=== PATIENT | female | born 1945 | race Caucasian/White ===

== ENCOUNTER 2023-08-23 19:25 | Emergency (ER) | payer SELFPAY ==
[2023-08-23 19:27] VITALS: BP 144/32
[2023-08-23 21:00] VITALS: BP 139/76
--- NOTE | 2023-08-23 21:02 | ED.GENMED ---
History of Present Illness
General
Chief Complaint: Head Injury
Source: patient
Exam Limitations: none
Time Seen by Provider: 08/23/23 20:53
Travel History
Have you had any contact with someone who has COVID-19?: No
Do you have any symptoms of coronavirus? Fever > 100 degrees, chills, cough, shortness of breath, sore throat, loss of taste or smell, muscle aches, or headache?: No
History of Present Illness
History of Present Illness:
Patient fell backwards into a tub. Hit the back of her head. Complaining of some head pain neck pain left foot pain and elbow pain. Foot and elbow x-rays were negative. No LOC. No syncope. No thinners.
Past History
Past History
ED Past Medical History: HTN
Social History
Tobacco: Non-smoker
Personal:
Review of Systems
Review of Systems
All Other Systems: Not applicable
Cardiac: Denies chest pain or syncope
ABD/GI: Denies abdominal pain
Phy Exam
Physical Exam
Physical Exam:
TRAUMA EXAM:
VITAL SIGNS: Vital signs reviewed, cooperative
DISTRESS: No active disease
EYES: Pupils reactive, no orbital trauma
NOSE: No deformity or epistaxis
FACE AND SCALP: No scalp or facial trauma
NECK: Supple mild paracervical tenderness
BACK: Back nontender, pelvis stable to compression
RESPIRATORY: No distress, breath sounds normal, no tender chest wall
CARDIAC: No murmur, pulses equal and strong
ABDOMEN: Soft nontender bowel sounds normal
SKIN: Abrasion to the dorsal left foot with small area of ecchymosis
EXTREMITIES: Very minimal tenderness over the area of ecchymosis but no deep bony tenderness
NEUROLOGICAL: Alert, oriented, no motor deficits
PSYCH: Mood affect normal
Course
Orders/Labs/Results
Orders:
Orders
08/23/23 19:32
CT Head W/o Iv Contrast Urgent
Comment:
Reason For Exam: FALL INTO BATHTUB
Cervical Spine wo Contrast CT [CT Cervical Spine W/o Iv Contr] Urgent
Comment:
Reason For Exam: FALL INTO BATHTUB
Vital Signs
Initial and Last Documented VS:
Initial Vital Signs
Temp Pulse Resp BP Pulse Ox
98.3 F 64 24 144/32 98
08/23/23 19:27 08/23/23 19:27 08/23/23 19:27 08/23/23 19:27 08/23/23 19:27
Last Documented Vital Signs
Temp Pulse Resp BP Pulse Ox
98.3 F 64 24 144/32 98
08/23/23 19:27 08/23/23 19:27 08/23/23 19:27 08/23/23 19:27 08/23/23 19:27
*Radiology
Radiology exam reviewed: radiology read reviewed (Degenerative changes. No acute findings)
*Pulse Oximetry
Patient hypoxic: no
*Critical Care Note
Total Time (30-74mins, 75-104mins- exclusive of procedures): Not Applicable
ED Attending Note
-
Portions of this chart may have been created with voice recognition software.� Occasional wrong word or��sound alike� substitutions may have occurred due to the inherent limitations of voice recognition software.
Discharge Plan
Departure
Patient Disposition: Home (Routine Discharge)
Date of Disposition: 08/23/23
Time of Disposition: 21:07
Patient with high blood pressure during this ER visit?: No
Discharge Problem:
Fall, Minor head injury, Multiple contusions/abrasions
Instructions: Contusion (DC), Minor Head Injury (DC), BLOOD PRESSURE
Activity Restrictions/Additional Instructions:
Follow-up with your physician in 2 to 3 days
Interventions
Interventions:
*Risk Screen - Suicide Last Done: 08/23/23 19:27
*Neglect/Abuse Screening Last Done: 08/23/23 19:27
Discharge Date and Time
Print Language: ICELANDIC
== END 2023-08-23 22:08 | disposition home or self-care (01) ==
LOC: EMR 19:25
PROVIDERS: EMERGENCY PHYSICIAN Emergency Medicine
DX: S09.90XA Unspecified injury of head, initial encounter (principal); S90.32XA Contusion of left foot, initial encounter; S90.812A Abrasion, left foot, initial encounter; W18.2XXA Fall in (into) shower or empty bathtub, initial encounter; Y93.E1 Activity, personal bathing and showering; I10 Essential (primary) hypertension
CPT/HCPCS: 99284; 70450; 72125

== ENCOUNTER 2024-05-28 02:55 | Inpatient (IN) | payer OTHER, SELFPAY ==
[2024-05-27] VITALS (7 sets, daily range): BP systolic 73–148; BP diastolic 56–110; BMI 22.1
[2024-05-27 20:27] LABS: % Basophils 0.1 % (0-2); % Eosinophils 0.6 % (0-6); % Immature Granulocytes 0.5 % (0-0.5); % Lymphocytes 8.2 % (20.5-51.1); % Monocytes 7.8 % (1.7-9.3); % Neutrophils 82.8 % (42.2-75.2); Absolute Eosinophils 0.1 10^3/uL (0-0.7); Absolute Lymphocytes 0.7 10^3/uL (1.2-3.4); Absolute Monocytes 0.7 10^3/uL (0.1-0.6); Absolute Neutrophils 7.3 10^3/uL (1.4-6.5); Hematocrit 37.8 % (37.0-47.0); Hemoglobin 13.1 g/dL (12.0-16.0); Mean Corp Hgb Conc. 34.7 g/dL (33.0-37.0); Mean Corpuscular Volume 92.2 fL (81.0-99.0); Mean Platelet Volume 10.7 fL (7.4-10.4); Nucleated Red Blood Cells % 0 %; Platelet Count 132 10^3/uL (130-400); Red Cell Dist. Width 12.3 % (11.5-14.5); White Blood Cell Count 8.8 10^3/uL (4.8-10.8)
--- NOTE | 2024-05-27 20:34 | ED.GENMED ---
History of Present Illness
General
Chief Complaint: Weakness
Source: patient
Exam Limitations: none
Time Seen by Provider: 05/27/24 20:05
History of Present Illness
History of Present Illness:
78 year old female presents via EMS from independent apartment with complaints of generalized weakness. She states she had some type of nightmare last night and was out of sorts and today she is feeling very weak. She was afraid to walk around her
apartment today as she felt like her legs would give out. She denies any unilateral numbness or weakness. No chest pain or shortness of breath. She notes a vague off sensation that she does not know how to describe. No significant pain anywhere.
No other complaints at this time
Past History
Past History
ED Past Medical History: HTN
Social History
Tobacco: Non-smoker
Personal:
Phy Exam
Physical Exam
Physical Exam:
General: Well-appearing female no acute respiratory distress
HEENT: Normocephalic atraumatic mucosa slightly dry
Heart: Regular rate and rhythm no murmurs
Lungs: Clear no wheeze
Abdomen is soft nontender nondistended no guarding rebound normal bowel sounds
Extremities: No cyanosis
Skin warm no rash
Course
Orders/Labs/Results
Orders:
Orders
05/27/24 20:17
CMP [Comprehensive Metabolic Panel] Urgent
Complete Blood Count/With Diff Urgent
TSH Reflex To Free T4 Urgent
Comment: ADD ON
05/27/24 20:18
EKG [Electrocardiogram (*1)] Urgent
Reason for Study: Fatigue / Weakness
05/27/24 20:19
EKG- Treatment ONCE
05/27/24 20:25
CR Chest - 2 Views Urgent
Comment:
Reason For Exam: weakness
05/27/24 20:26
CT Head W/o Iv Contrast Urgent
Comment:
Reason For Exam: weakness, confusion
05/27/24 20:33
COVID-19 Antigen Urgent
Source: Nasal Swab
Influenza A+B Rapid Molecular Urgent
DONATO Source: Nasal Swab
Specimen Description:
05/27/24 21:11
Add On- LAB Urgent
Tests Added?: tsh reflex to t4
05/27/24 21:20
Urinalysis Reflex To Culture Urgent
Date Specimen was Collected: 05/27/24
Time Specimen was Collected: 20:36
Urine Microscopic Reflex Cult Urgent
Urine Culture Urgent
DONATO Source: U
Specimen Description:
Date Specimen was Collected: 05/27/24
Time Specimen was Collected: 20:36
05/27/24 21:58
CefTRIAXone [Rocephin] 1,000 mg IV NOW STA
05/27/24 22:28
0.9% Sodium Chloride 1000 ml [Nss] 1,000 ml IV BOLUS
05/28/24 00:27
Ondansetron Orally Disint [Zofran Odt (Orally Disintegrating)] 4 mg PO NOW STA
Abnormal Lab Results
05/27/24 05/27/24
20:17 21:20
RBC 4.10 L 10^6/uL
(4.20-5.40)
MCH 32.0 H pg
(27.0-31.0)
MPV 10.7 H fL
(7.4-10.4)
Absolute Neuts (auto) 7.3 H 10^3/uL
(1.4-6.5)
Absolute Lymphs (auto) 0.7 L 10^3/uL
(1.2-3.4)
Absolute Monos (auto) 0.7 H 10^3/uL
(0.1-0.6)
Neutrophils % 82.8 H %
(42.2-75.2)
Lymphocytes % 8.2 L %
(20.5-51.1)
Sodium 132 L mmol/L
(135-145)
Glucose 233 H mg/dl
(70-99)
Total Protein 6.0 L g/dl
(6.3-8.2)
Ur Occult Blood Reflex 3+ A
(Negative)
Urine Nitrite (Reflex) Positive A
(Negative)
Leukocyte Esterase Rfl 3+ A
(Negative)
Urine WBC (Reflex) >100 A /HPF
(0-5)
Urine Bacteria (Reflex) Moderate A
(Negative)
Urine Albumin (Reflex) 2+ A
(Neg - Trace)
05/27/24 20:17
05/27/24 20:17
Vital Signs
Initial and Last Documented VS:
Initial Vital Signs
Temp Pulse Resp BP Pulse Ox
98.6 F 89 14 138/62 95
05/27/24 20:05 05/27/24 20:05 05/27/24 20:05 05/27/24 20:05 05/27/24 20:05
Last Documented Vital Signs
Temp Pulse Resp BP Pulse Ox
98.6 F 107 22 148/108 93
05/27/24 20:05 05/28/24 00:00 05/28/24 00:00 05/28/24 00:00 05/27/24 22:45
MDM/Problems Addressed
Differential Diagnosis Includes:
Generalized weakness. No localizing findings on exam. Differential is large but will check for electrolyte abnormality anemia UTI viral infection. Does look slightly dry. Will hydrate.
*Critical Care Note
Total Time (30-74mins, 75-104mins- exclusive of procedures): Not Applicable
Update Note
Update Note:
Workup consistent with UTI labs reviewed and are normal. Please note there were several blood pressure checks on the left arm however she is not supposed to have the blood pressure checked on her left arm as it gives falsely low readings. When
switched to the right arm her blood pressure normalized. No indication for admission. Will treat with Omnicef for UTI. Stable for discharge
12:50 AM. Upon discharge patient started vomiting. She started developing rigors. Ultimately recheck of temperature showed a temperature of 102.0. She was given ODT Zofran but vomited shortly afterwards. At this point not a candidate for
discharge. Will restart IV administer fluids and admit for UTI and fever. Blood cultures also ordered
ED Attending Note
-
Portions of this chart may have been created with voice recognition software.� Occasional wrong word or��sound alike� substitutions may have occurred due to the inherent limitations of voice recognition software.
Discharge Plan
Departure
Patient Disposition: Admit
Date of Disposition: 05/28/24
Time of Disposition: 00:06
Presentation/result/management discussed w/ accepting MD/DO: Hospitalist
Patient with high blood pressure during this ER visit?: No
Discharge Problem:
Acute UTI
Prescriptions:
New
cefdinir 300 mg capsule
300 mg PO BID Qty: 14 0RF
No Action
atorvastatin 40 mg Tablet
40 mg PO DAILY
ascorbic acid (vitamin C) [Vitamin C] 1,000 mg Tablet
1 g PO DAILY
cyanocobalamin (vitamin B-12) 1,000 mcg Tablet
1,000 mcg PO DAILY
glucosamine sulfate [Glucosamine] 500 mg Tablet
500 mg PO DAILY
potassium 99 mg Tablet
99 mg PO DAILY
citalopram 20 mg Tablet
20 mg PO DAILY
levothyroxine 50 mcg Tablet
50 mcg PO MOTUWETHFRSA
levothyroxine 50 mcg Tablet
100 mcg PO ROMAN
metformin 1,000 mg Tablet
1,000 mg PO DAILY
omeprazole 20 mg Capsule,Delayed Release(Dr/Ec)
20 mg PO DAILY
aspirin 81 mg Tablet,Chewable
81 mg PO DAILY
metoprolol succinate 25 mg Tablet Extended Release 24 Hr
25 mg PO DAILY
candesartan 8 mg Tablet
8 mg PO DAILY
ezetimibe 10 mg Tablet
10 mg PO DAILY
memantine 10 mg Tablet
10 mg PO DAILY
cholecalciferol (vitamin D3) [Vitamin D3] 25 mcg (1,000 unit) Tablet
25 mcg PO DAILY
hydrochlorothiazide 12.5 mg Tablet
12.5 mg PO DAILY
magnesium oxide 400 mg magnesium Tablet
400 mg PO DAILY
Referrals:
JOCY MILLER [Other]
Interventions
Interventions:
*Risk Screen - Suicide Last Done: 05/27/24 20:12
*General Assessment Last Done: 05/27/24 20:12
*Neglect/Abuse Screening Last Done: 05/27/24 20:12
*ED- Fall Risk Assessment Last Done: 05/27/24 20:12
*ED COVID-19 Vaccine History Last Done: 05/27/24 20:12
ED- Cardiac Assessment Last Done: 05/27/24 20:15
ED- Neurological Assessment Last Done: 05/27/24 20:15
ED- Pulmonary Assessment Last Done: 05/27/24 20:15
Discharge Date and Time
Print Language: CITIZEN OF [place]
[2024-05-27 20:43] LABS: ALT (SGPT) 14 U/L (0-35); AST (SGOT) 17 U/L (14-36); Albumin 3.6 g/dl (3.5-5.0); Alkaline Phosphatase 95 U/L (38-126); Blood Urea Nitrogen 17 mg/dl (7-17); Calcium 8.7 mg/dl (8.4-10.2); Carbon Dioxide 24 mmol/L (22-30); Chloride 100 mmol/L (98-107); Estimated Creatinine Clearance 46 ml/min; Glucose 233 mg/dl (70-99); Potassium 3.8 mmol/L (3.5-5.1); Sodium 132 mmol/L (135-145); Total Bilirubin 0.9 mg/dl (0.2-1.3); eGFR > 60.00
[2024-05-27 20:56] LABS: COVID-19 Antigen Negative (Negative)
[2024-05-27 21:29] LABS: Urine Albumin 2+ (Neg - Trace); Urine Bilirubin Negative (Negative); Urine Character Clear (Clear); Urine Color Yellow; Urine Glucose Negative (Negative); Urine Ketone Negative (Negative); Urine Leukocyte 3+ (Negative); Urine Nitrite Positive (Negative); Urine Occult Blood 3+ (Negative); Urine Specific Gravity 1.015 (<1.030); Urine Urobilinogen Negative (Neg - 1+)
[2024-05-27 21:41] LABS: Urine White Cell >100 /HPF (0-5)
[2024-05-27 21:43] LABS: Urine Bacteria Moderate (Negative)
[2024-05-27] MEDS: ROCEPHIN 1000 MG IV (22:10)
[2024-05-27 22:32] LABS: TSH Reflex To Free T4 0.93 uIU/ml (0.47-4.68)
[2024-05-27] MEDS: NSS 1000 IV (23:04)
[2024-05-28] VITALS (10 sets, daily range): BP systolic 101–148; BP diastolic 53–108; PULSE 62–86; O2SAT 95; BMI 22.2
[2024-05-28] MEDS: ZOFRAN ODT (ORALLY DISINTEGRATING) 4 MG PO (00:32)
[2024-05-28] MEDS: NSS 1000 IV ×3 (01:32→16:29)
[2024-05-28] MEDS: ZOFRAN 4 MG IV (01:34)
[2024-05-28] MEDS: TYLENOL 650 MG PO (01:38)
--- NOTE | 2024-05-28 02:42 | HPS.HSE ---
Family Physician
-
Family Physician: JOCY MILLER
Chief Complaint
-
Confusion, Myalgias
History of Present Illness
Patient is an 78y F with PMH significant for PAD, hypertension and DM-II who presents to ED complaining of generalized weakness and fatigue. Patient seems confused according to her daughter who is at bedside. Patient states that she has felt
'out of sorts' all day today. Evaluation in the ED revealed UA consistent with infection and patient was given IV ceftriaxone and set to be discharged on oral abx. She then developed shaking chills and had N/V x 1 episode. Temperature increased
to 102. Patient complains of diffuse myalgias. She denies any specific/ focal complaints such as cough, abdominal pain, urinary frequency / dysuria, etc.
Medical History
Past Medical History
Past Medical History: Reports Other
Additional Past Medical History:
Senile Dementia
ASCVD / PAD
Hypertension
DM-II
Hypothyroidism
Anxiety / Depression
Past Surgical History: Reports Other
Additional Past Surgical History:
LE Angio / Stent
Social History
Tobacco: Former Smoker (Quit smoking 40 years ago. < 20 pack years total use.)
Alcohol: None
Drug: None
Family History
Family History: Not pertinent
Allergies / Home Medications
Allergies reflects when Allergies were last updated in [facility].
Home Medications with original date entered in [facility]
Allergy/Medication List:
Allergies
Allergy/AdvReac Type Severity Reaction Status Date / Time
quinine Allergy Rash Verified 05/27/24 20:10
Home Medications
ascorbic acid (vitamin C) 1,000 mg tablet (Vitamin C) 1 g PO DAILY 05/27/24
aspirin 81 mg chewable tablet 81 mg PO DAILY 05/27/24
atorvastatin 40 mg tablet 40 mg PO DAILY 05/27/24
candesartan 8 mg tablet 8 mg PO DAILY 05/27/24
cholecalciferol (vitamin D3) 25 mcg (1,000 unit) tablet (Vitamin D3) 25 mcg PO DAILY 05/27/24
citalopram 20 mg tablet 20 mg PO DAILY 05/27/24
cyanocobalamin (vitamin B-12) 1,000 mcg tablet 1,000 mcg PO DAILY 05/27/24
ezetimibe 10 mg tablet 10 mg PO DAILY 05/27/24
glucosamine sulfate 500 mg tablet (Glucosamine) 500 mg PO DAILY 05/27/24
hydrochlorothiazide 12.5 mg tablet 12.5 mg PO DAILY 05/27/24
levothyroxine 50 mcg tablet 50 mcg PO MOTUWETHFRSA 05/27/24
levothyroxine 50 mcg tablet 100 mcg PO ROMAN 05/27/24
magnesium oxide 400 mg PO DAILY 05/27/24
memantine 10 mg tablet 10 mg PO DAILY 05/27/24
metformin 1,000 mg tablet 1,000 mg PO DAILY 05/27/24
metoprolol succinate 25 mg tablet,extended release 24 hr 25 mg PO DAILY 05/27/24
omeprazole 20 mg capsule,delayed release 20 mg PO DAILY 05/27/24
potassium 99 mg tablet 99 mg PO DAILY 05/27/24
cefdinir 300 mg capsule 300 mg PO BID #14 caps 05/28/24
Review of Systems
-
History Source: Patient
A 12 point ROS was completed and negative except as noted: Yes
Constitutional: Reports Fever, Fatigue and Chills
EENT: Denies Sore Throat
Respiratory: Denies Cough or Trouble Breathing
Cardiac: Denies Chest Pain or Palpitations
Abdomen/GI: Reports Nausea and Vomiting; Denies Abdominal Pain or Diarrhea
: Denies Dysuria, Frequency or Flank Pain
Musculoskeletal: Reports Muscle Pain; Denies Joint Pain or Edema
Neurological: Denies Dizzy or Headache
Psych: Denies Depression or Anxiety
Physical Exam
Vital Signs
Vital Signs
Temp Pulse Resp BP Pulse Ox
102.0 F H 100 24 121/85 89
05/28/24 01:00 05/28/24 00:17 05/28/24 00:17 05/28/24 02:00 05/28/24 02:00
Physical Exam
General: Other (78y F in no acute distress.)
HEENT: Other (Dry MM. Neck supple.)
Respiratory: Clear; No Wheezes, Rales or Rhonchi
Cardiac: S1/S2 and Regular Rhythm
GI: Soft, Non Tender, Non Distended and Normal Bowel Sounds
Musculoskeletal: No Clubbing, No Cyanosis and No Edema
Neuro: Awake and Alert
Laboratory Results
-
05/27/24 20:17
05/27/24 20:17
Laboratory Results
Total Bilirubin 0.9 mg/dl (0.2-1.3) 05/27/24 20:17
AST 17 U/L (14-36) 05/27/24 20:17
ALT 14 U/L (0-35) 05/27/24 20:17
Alkaline Phosphatase 95 U/L (38-126) 05/27/24 20:17
Impression/Plan
-
A/P: Patient is an 78y F with PMH significant for HTN, DM-II and dementia who presents to ED complaining of fatigue. Noted to have rigors, N/V and fever to 102 here in the ED.
UTI
Sepsis secondary to the above
- Admit for further evaluation and treatment.
- Patient presents with fever, tachycardia, tachypnea and UA consistent with UTI.
- Continue IV ceftriaxone pending culture data.
- Supportive care including IVFs, antipyretics, etc.
- Follow for clinical improvement.
- Check renal US for any evidence of hydro, etc.
Benign Hypertension
- Stable. Continue home medications with holding parameters.
ASCVD / PAD
- Stable. Continue current CV med regimen including ASA, statin, etc.
DM-II
- Stable. Hold metformin acutely.
- Follow glucose and cover with SSI as needed.
- Update A1C.
Hypothyroidism
- Stable. TSH is normal.
- Continue current T4 replacement.
Senile Dementia
Anxiety / Depression
- Stable. Continue usual home medications.
- Pleasantly confused in the ED.
- Monitor for any agitation / delirium during acute stay.
DVT Prophylaxis: Lovenox
Code Status: Full
[2024-05-28 05:40] LABS: Hemoglobin 12.5 g/dL (12.0-16.0); Mean Corp Hgb Conc. 33.8 g/dL (33.0-37.0); Mean Corpuscular Hgb 31.9 pg (27.0-31.0); Mean Corpuscular Volume 94.4 fL (81.0-99.0); Mean Platelet Volume 10.6 fL (7.4-10.4); Platelet Count 127 10^3/uL (130-400); Red Blood Cell Count 3.92 10^6/uL (4.20-5.40); Red Cell Dist. Width 12.2 % (11.5-14.5); White Blood Cell Count 10.5 10^3/uL (4.8-10.8)
[2024-05-28] MEDS: SYNTHROID 50 MCG PO (05:43)
[2024-05-28 05:50] LABS: Blood Urea Nitrogen 18 mg/dl (7-17); Calcium 8.1 mg/dl (8.4-10.2); Carbon Dioxide 18 mmol/L (22-30); Chloride 106 mmol/L (98-107); Estimated Creatinine Clearance 40 ml/min; Glucose 197 mg/dl (70-99); Potassium 4.1 mmol/L (3.5-5.1); Sodium 136 mmol/L (135-145); eGFR > 60.00
[2024-05-28 07:34] LABS: Glucose - Point of Care 174 mg/dl (70-99)
[2024-05-28] MEDS: LIPITOR 40 MG PO (09:29)
[2024-05-28] MEDS: ATACAND 8 MG PO (09:30)
[2024-05-28] MEDS: TOPROL XL 25 MG PO (09:30)
[2024-05-28] MEDS: CELEXA 20 MG PO (09:30)
[2024-05-28] MEDS: LOW STRENGTH ASPIRIN 81 MG PO (09:30)
[2024-05-28] MEDS: PROTONIX 40 MG PO (09:30)
[2024-05-28] MEDS: NAMENDA 10 MG PO (09:31)
[2024-05-28 09:56] LABS: Glycohemoglobin (HgbA1c) 7.3 % (4.0-5.6)
[2024-05-28] MEDS: NOVOLOG FLEXPEN-LOW RESISTANCE 1 UNITS SC ×2 (10:37→17:35)
[2024-05-28 11:55] LABS: Glucose - Point of Care 499 mg/dl (70-99)
[2024-05-28 12:22] LABS: Glucose 253 mg/dl (70-99)
--- NOTE | 2024-05-28 12:25 | CM ---
CM reviewed chart, patient seen bedside with two daughters (Sho and Irma) and granddaughter. Initial assessment completed with assistance from daughters. Patient resides independently in an apartment, second floor, elevator access. Patient
has a cane and walker at home, denies VN or SNF history. Patient primary- [facility], pharmacy [facility] [place] confirms prescription coverage. PT consulted, family agreeable to VN services or SNF if needed. Daughter Sho would like to be
contacted for VN services if needed. CM will continue to follow for all discharge planning needs.
Plan; home with VN vs SNF, will watch for PT evals.
[2024-05-28] MEDS: NOVOLOG FLEXPEN-LOW RESISTANCE 3 UNITS SC (13:10)
--- NOTE | 2024-05-28 14:31 | W.PN.HOSP.TC ---
Today's Communication/Plan
-
follow temp, CBC
await Cx data
Pt states lives on own in apartment
Input from PT/OT noted and appreciated
Assessment / Plan
Assessment / Plan
A/P: Patient is an 78y F with PMH significant for HTN, DM-II and dementia who presents to ED complaining of fatigue. Noted to have rigors, N/V and fever to 102 here in the ED.
UTI
Sepsis secondary to the above
- Admit for further evaluation and treatment.
- Patient presents with fever, tachycardia, tachypnea and UA consistent with UTI.
WBC 8.8-->10.5
- Continue IV ceftriaxone pending culture data.
- Supportive care including IVFs, antipyretics, etc.
- Follow for clinical improvement.
- Check renal US: There is no hydronephrosis or sonographic evidence of renal calculus.
Benign Hypertension
- Stable. Continue home medications with holding parameters.
ASCVD / PAD
- Stable. Continue current CV med regimen including ASA, statin, etc.
DM-II
- Stable. Hold metformin acutely.
- Follow glucose and cover with SSI as needed.
- 7.3% A1C.
Hypothyroidism
- Stable. TSH is normal.
- Continue current T4 replacement.
Senile Dementia
Anxiety / Depression
- Stable. Continue usual home medications.
- Pleasantly confused in the ED.
- Monitor for any agitation / delirium during acute stay.
DVT Prophylaxis: Lovenox
Code Status: Full
Anticipated Discharge: 24 - 48 hours
Subjective/Interval History
-
Date of Service: May 28, 2024
Awake, alert, asking when she can leave
Objective Data
-
Labs:
Laboratory Results
05/28/24 05/28/24
05:15 12:03
WBC 10.5
Hgb 12.5
Hct 37.0
Plt Count 127 L
Sodium 136
Potassium 4.1
Chloride 106
Carbon Dioxide 18 L
BUN 18 H
Creatinine 0.8
Glucose 197 H 253 H
Calcium 8.1 L
Vital Signs:
Vital Signs
Temp Pulse Resp BP Pulse Ox
97.7 F 77 18 117/76 98
05/28/24 07:25 05/28/24 09:30 05/28/24 07:25 05/28/24 09:30 05/28/24 07:25
Review of Systems
-
History Source: Patient and Coordinated Provider
Constitutional: Reports Fever (102.0 at 01:00)
Respiratory: Reports No Symptoms
Cardiac: Reports No Symptoms
Abdomen/GI: Reports No Symptoms
Genitourinary: Reports No Symptoms
Neuro: Reports No Symptoms
Physical Exam
-
General: Well Developed, Well Nourished and Appears Chronically Ill
HEENT: Normocephalic, Atraumatic and Moist Mucous Membranes
Respiratory: Clear to Auscultation; Negative Wheezes, Rales or Rhonchi
Cardiac: Regular Rhythm and S1/S2
GI: Soft, Nontender and Nondistended
Musculoskeletal: No Clubbing, No Cyanosis and No Edema
Neuro: Awake, Alert and Oriented
[2024-05-28 16:55] LABS: Glucose - Point of Care 168 mg/dl (70-99)
[2024-05-28] MEDS: LOVENOX 40 MG SC (17:32)
[2024-05-28] MEDS: STERILE WATER FOR INJECTION 10 ML IV (21:27)
[2024-05-28] MEDS: ROCEPHIN 1000 MG IV (21:27)
[2024-05-28 21:46] LABS: Glucose - Point of Care 186 mg/dl (70-99)
[2024-05-29] MEDS: TYLENOL 650 MG PO (01:36)
[2024-05-29] MEDS: NSS 1000 IV (03:27)
[2024-05-29] MEDS: SYNTHROID 100 MCG PO (05:49)
[2024-05-29 07:25] LABS: % Basophils 0.4 % (0-2); % Eosinophils 2.2 % (0-6); % Immature Granulocytes 0.4 % (0-0.5); % Lymphocytes 21.4 % (20.5-51.1); % Neutrophils 65.6 % (42.2-75.2); Absolute Eosinophils 0.2 10^3/uL (0-0.7); Absolute Lymphocytes 1.5 10^3/uL (1.2-3.4); Absolute Monocytes 0.7 10^3/uL (0.1-0.6); Absolute Neutrophils 4.5 10^3/uL (1.4-6.5); Hematocrit 30.5 % (37.0-47.0); Hemoglobin 10.3 g/dL (12.0-16.0); Mean Corp Hgb Conc. 33.8 g/dL (33.0-37.0); Mean Corpuscular Hgb 31.9 pg (27.0-31.0); Mean Corpuscular Volume 94.4 fL (81.0-99.0); Mean Platelet Volume 10.9 fL (7.4-10.4); Nucleated Red Blood Cells % 0 %; Platelet Count 120 10^3/uL (130-400); Red Blood Cell Count 3.23 10^6/uL (4.20-5.40); Red Cell Dist. Width 12.4 % (11.5-14.5); White Blood Cell Count 6.9 10^3/uL (4.8-10.8)
[2024-05-29 07:26] LABS: Glucose - Point of Care 178 mg/dl (70-99)
[2024-05-29 07:30] VITALS: BP 113/66; BP 118/68; BP 120/70; PULSE 62; PULSE 64; PULSE 68
[2024-05-29 07:33] LABS: Blood Urea Nitrogen 14 mg/dl (7-17); Calcium 8.2 mg/dl (8.4-10.2); Carbon Dioxide 18 mmol/L (22-30); Chloride 112 mmol/L (98-107); Estimated Creatinine Clearance 40 ml/min; Glucose 174 mg/dl (70-99); Potassium 3.8 mmol/L (3.5-5.1); Sodium 138 mmol/L (135-145); eGFR > 60.00
[2024-05-29] MEDS: NAMENDA 10 MG PO (08:40)
[2024-05-29] MEDS: NOVOLOG FLEXPEN-LOW RESISTANCE 1 UNITS SC ×2 (08:40→12:22)
[2024-05-29] MEDS: ATACAND 8 MG PO (08:40)
[2024-05-29] MEDS: TOPROL XL 25 MG PO (08:40)
[2024-05-29] MEDS: LOW STRENGTH ASPIRIN 81 MG PO (08:40)
[2024-05-29] MEDS: PROTONIX 40 MG PO (08:41)
[2024-05-29] MEDS: CELEXA 20 MG PO (08:41)
[2024-05-29] MEDS: LIPITOR 40 MG PO (08:41)
[2024-05-29 11:59] LABS: Glucose - Point of Care 151 mg/dl (70-99)
--- NOTE | 2024-05-29 13:17 | W.PN.HOSP.TC ---
Today's Communication/Plan
-
check E.Coli sens
potential dc with Home Care tomorrow if continues to do well
Assessment / Plan
Assessment / Plan
A/P: Patient is an 78y F with PMH significant for HTN, DM-II and dementia who presents to ED complaining of fatigue. Noted to have rigors, N/V and fever to 102 here in the ED.
UTI
Sepsis secondary to the above
- Admit for further evaluation and treatment.
- Patient presents with fever, tachycardia, tachypnea and UA consistent with UTI.
WBC 8.8-->10.5-->6.9
- Continue IV ceftriaxone pending culture data.
E.Coli - sensitivites pending
- will stop IVF
- PT/OT consults
requested nursing get pt OOB to chair
- Check renal US: There is no hydronephrosis or sonographic evidence of renal calculus.
Benign Hypertension
- Stable. Continue home medications with holding parameters.
ASCVD / PAD
- Stable. Continue current CV med regimen including ASA, statin, etc.
DM-II
- Stable. Hold metformin acutely.
- Follow glucose and cover with SSI as needed.
- 7.3% A1C.
Hypothyroidism
- Stable. TSH is normal.
- Continue current T4 replacement.
Senile Dementia
Anxiety / Depression
- Stable. Continue usual home medications.
- Pleasantly confused in the ED.
- Monitor for any agitation / delirium during acute stay.
DVT Prophylaxis: Lovenox
Code Status: Full
Anticipated Discharge: 24 - 48 hours
Subjective/Interval History
-
Date of Service: May 29, 2024
Generally feels better, voice stronger
Objective Data
-
Labs:
Laboratory Results
05/29/24
06:50
WBC 6.9
Hgb 10.3 L
Hct 30.5 L
Plt Count 120 L
Sodium 138
Potassium 3.8
Chloride 112 H
Carbon Dioxide 18 L
BUN 14
Creatinine 0.8
Glucose 174 H
Calcium 8.2 L
Vital Signs:
Vital Signs
Temp Pulse Resp BP Pulse Ox
97.9 F 62 14 113/66 95
05/29/24 07:30 05/29/24 07:30 05/29/24 07:30 05/29/24 07:30 05/29/24 08:00
I&O
05/28/24 05/29/24 05/30/24
05:59 06:59 06:59
Intake Total 240 / 240
Balance 240 / 240
Review of Systems
-
History Source: Patient and Coordinated Provider
Constitutional: Denies Fever (afebrile >24hrs)
Respiratory: Reports No Symptoms
Cardiac: Reports No Symptoms
Abdomen/GI: Reports No Symptoms
Genitourinary: Reports No Symptoms
Neuro: Reports No Symptoms
Physical Exam
-
General: Well Developed, Well Nourished and Appears Chronically Ill
HEENT: Normocephalic, Atraumatic and Moist Mucous Membranes
Respiratory: Clear to Auscultation; Negative Wheezes, Rales or Rhonchi
Cardiac: Regular Rhythm and S1/S2
GI: Soft, Nontender and Nondistended
Musculoskeletal: No Clubbing, No Cyanosis and No Edema
Neuro: Awake, Alert and Oriented
[2024-05-29 15:34] VITALS: BP 164/77
[2024-05-29] MEDS: NSS IV (16:15)
[2024-05-29 16:58] LABS: Glucose - Point of Care 146 mg/dl (70-99)
[2024-05-29] MEDS: NOVOLOG FLEXPEN-LOW RESISTANCE SC (17:00)
[2024-05-29] MEDS: LOVENOX 40 MG SC (17:05)
--- NOTE | 2024-05-29 20:55 | PTCARENOTE ---
Patient refusing orthostatic vital signs. Education provided. Will reattempt to obtain orthostatic vital signs.
[2024-05-29] MEDS: STERILE WATER FOR INJECTION IV (21:33)
[2024-05-29] MEDS: ROCEPHIN IV (21:33)
--- NOTE | 2024-05-29 21:46 | PTCARENOTE ---
Patient is refusing IV Rocephin, blood sugar checks, and vital signs. Patient is not oriented to time, place, or person. Patient noted to be agitated, trying to get out of bed and hit staff. Patient reoriented to time, place and person. Code purple
called on patient. Education provided about plan of care. Patient assisted to bed, bed alarm remains in place.
--- NOTE | 2024-05-29 21:55 | W.PN.UPDATE ---
Update Note
Progress Note Update
2145 code purple due agitation and trying to hit staff.
Pt does have hx of senile dementia but has been relatively pleasant though confused previous day but according to nurse seem to be getting worse.
Refusing vitals, meds and accuchecks
Will order zyprexa x1
--- NOTE | 2024-05-29 22:03 | PTCARENOTE ---
Patient assisted to bathroom by RN and PCT. Patient became even more aggressive to staff coming out of the bathroom. Patient was cursing and hitting at staff. Redirection and reorientation were not effective at calming patient down. Patient placed
in bed with the assistance of multiple staff members. Four point restraints applied to patient`s limbs. Patient was trying to kick and hit staff. Mirian P[employer]IAT[employer]IC SURGEON made aware of situation. Order placed for IV Zyprexa.
[2024-05-29] MEDS: ZYPREXA 5 MG IM (22:16)
[2024-05-29] MEDS: STERILE WATER FOR INJECTION 2.1 ML IM (22:17)
[2024-05-29 22:18] LABS: Glucose - Point of Care 134 mg/dl (70-99)
[2024-05-29] MEDS: ROCEPHIN 1000 MG IV (22:18)
[2024-05-29] MEDS: STERILE WATER FOR INJECTION 10 ML IV (22:18)
[2024-05-29 23:54] VITALS: BP 132/63
--- NOTE | 2024-05-30 04:47 | PTCARENOTE ---
Patient stated that she felt like she had to use the bed moore. Patient placed on bed moore twice, but unable to go. Patient was scanned for 519 ml and straight cathed for 500 ml. Straight cath and bladder scan protocol order in place.
[2024-05-30] MEDS: SYNTHROID PO (06:03)
[2024-05-30 07:48] LABS: Glucose - Point of Care 100 mg/dl (70-99)
[2024-05-30 07:50] VITALS: BP 115/74
[2024-05-30] MEDS: NOVOLOG FLEXPEN-LOW RESISTANCE SC (07:53)
[2024-05-30] MEDS: NAMENDA 10 MG PO (08:31)
[2024-05-30] MEDS: CELEXA 20 MG PO (08:31)
[2024-05-30] MEDS: LOW STRENGTH ASPIRIN 81 MG PO (08:31)
[2024-05-30] MEDS: LIPITOR 40 MG PO (08:31)
[2024-05-30] MEDS: ATACAND 8 MG PO (08:31)
[2024-05-30] MEDS: PROTONIX 40 MG PO (08:31)
[2024-05-30] MEDS: TOPROL XL 25 MG PO (08:31)
[2024-05-30 12:09] LABS: Glucose - Point of Care 226 mg/dl (70-99)
[2024-05-30] MEDS: NOVOLOG FLEXPEN-LOW RESISTANCE 2 UNITS SC ×2 (12:25→17:13)
[2024-05-30] MEDS: GLUCOPHAGE 1000 MG PO (13:35)
[2024-05-30 14:39] VITALS: BP 137/67; PULSE 66
[2024-05-30 15:11] VITALS: BP 102/66
[2024-05-30 16:16] LABS: Glucose - Point of Care 225 mg/dl (70-99)
--- NOTE | 2024-05-30 16:19 | W.PN.HOSP.TC ---
Today's Communication/Plan
-
daughter Kimberley who notes she can be called at any time of day or night as needed if her mother develops agitation and requires redirection
Assessment / Plan
Assessment / Plan
Gen-awake and alert, NAD
HEENT-NC, AT, anicteric, clear oral mm
Neck-supple
CV-reg, no M, +S1/S2
Lungs-clear B/L
Abd-soft, NT, ND
Musculoskeletal-no edema, no deformity
Skin-warm and dry
Neuro-grossly non-focal
Psych-confused, cooperative
A/P: Patient is an 78y F with PMH significant for HTN, DM-II and dementia who presents to ED complaining of fatigue. Noted to have rigors, N/V and fever to 102 here in the ED.
UTI
Sepsis secondary to the above
- Patient presents with fever, tachycardia, tachypnea and UA consistent with UTI.
WBC 8.8-->10.5-->6.9
- Continue IV ceftriaxone, urine cultures growing pansensitive E. coli
-Renal ultrasound normal
- Evaluated by PT/OT, no need for skilled rehab although patient will need care at home considering apparent dementia
Benign Hypertension
- Stable. Continue home medications with holding parameters.
ASCVD / PAD
- Stable. Continue current CV med regimen including ASA, statin, etc.
DM-II
- Stable. Restarting home metformin, additional sliding scale as needed
- 7.3% A1C.
Hypothyroidism
- Stable. TSH is normal.
- Continue current T4 replacement.
Senile Dementia
Anxiety / Depression
- Stable. Continue usual home medications.
- Zyprexa ordered for agitation
-Case management following for assistance with arranging safe discharge
DVT Prophylaxis: Lovenox
Code Status: Full
Discussed clinical updates with daughter Kimberley who requests she can be called at any time of day or night as needed if her mother develops agitation and requires redirection
Anticipated Discharge: 24 - 48 hours
Subjective/Interval History
-
Date of Service: May 30, 2024
Patient was seen and examined at bedside this morning. Her daughter Kimberley was also present. Patient had an episode of agitation last night which improved with a dose of IM Zyprexa.
Objective Data
-
Vital Signs:
Vital Signs
Temp Pulse Resp BP Pulse Ox
98.5 F 62 18 102/66 95
05/30/24 15:11 05/30/24 15:11 05/30/24 15:11 05/30/24 15:11 05/30/24 15:11
I&O
05/29/24 05/30/24 05/31/24
06:59 06:59 06:59
Intake Total 480 / 480
Output Total 500 / 500
Balance -20 / -20
Review of Systems
-
History Source: Patient
All other systems: Reviewed and negative
Physical Exam
-
General: No Apparent Distress
[2024-05-30] MEDS: LOVENOX 40 MG SC (17:13)
[2024-05-30] MEDS: STERILE WATER FOR INJECTION 10 ML IV (21:00)
[2024-05-30] MEDS: ROCEPHIN 1000 MG IV (21:00)
[2024-05-30] MEDS: ZYPREXA 2.5 MG PO (21:02)
[2024-05-30 22:04] LABS: Glucose - Point of Care 135 mg/dl (70-99)
[2024-05-30 23:21] VITALS: BP 143/67; BP 152/66; BP 158/67; PULSE 69; PULSE 71
[2024-05-31] MEDS: SYNTHROID 50 MCG PO (05:41)
[2024-05-31] MEDS: TYLENOL 650 MG PO (05:50)
[2024-05-31 07:00] VITALS: BP 156/67
[2024-05-31 07:45] LABS: Glucose - Point of Care 91 mg/dl (70-99)
[2024-05-31] MEDS: NOVOLOG FLEXPEN-LOW RESISTANCE SC ×2 (07:46→11:34)
[2024-05-31] MEDS: CELEXA 20 MG PO (08:50)
[2024-05-31] MEDS: GLUCOPHAGE 1000 MG PO (08:50)
[2024-05-31] MEDS: PROTONIX 40 MG PO (08:50)
[2024-05-31] MEDS: ATACAND 4 MG PO (08:50)
[2024-05-31] MEDS: NAMENDA 10 MG PO (08:50)
[2024-05-31] MEDS: LIPITOR 40 MG PO (08:50)
[2024-05-31] MEDS: TOPROL XL 25 MG PO (08:50)
[2024-05-31] MEDS: LOW STRENGTH ASPIRIN 81 MG PO (08:51)
--- NOTE | 2024-05-31 10:33 | CM ---
Chart reviewed. Therapy rec HH at d/c.
CM spoke w/ patient and daughter bedside discussing HH needs. Daughter shared concerns about support in the home as patient lives alone independently. Daughter shared patient had hospital delirium but has been ok lastnight and yesterday. Daughter
stated she and her sister will take turns w/ having patient over for dinner and taking her home. Daughter stated patient does not want to live w/ them. CM discussed the option of [employer] that can assist patient in the home a few days a week. Daughter
stated patient still wants to be independent, CM informed daughter that [employer] would be an assist to her but she will still be able to maintain her independence w/ some support in the home. Daughter agreeable to [facility] for VN/PT/[employer], CM placed referral
in [facility].
Updated hospitalist on d/c plan, agreeable to d/c today
IMM reviewed, copy provided, copy placed in chart
Dilip VN

Plan: Home w/ [facility] services
--- NOTE | 2024-05-31 11:19 | W.DCSUMMARY ---
Discharge Summary
Discharge Data
Date of Admission: 05/28/24
Date of Discharge: 05/31/24
-
Pending Results: No
Hospital Course
Ms. Cruz is an 78-year-old female with a medical history of hypertension, osj-pmtshyy-rdsuyalio diabetes mellitus type 2, and dementia who presented with rigors, nausea vomiting, and fever of 102 �F. She was found to have a UTI, started on
appropriate antibiotics and admitted for treatment of sepsis secondary to UTI. Her urine cultures were growing pansensitive E. coli. Her clinical status significantly improved with antibiotic treatment and IV fluids. She was started on low-dose
Zyprexa for agitation in the setting of dementia and probable superimposed hospital induced delirium. One of her home blood pressure medications (hydrochlorothiazide) was held during this admission. She was normotensive on her home dose of
candesartan 8 mg daily, which was later reduced to 4 mg daily due to borderline hypotension. She should continue on candesartan 4 mg daily and follow-up with her primary care physician for ongoing blood pressure monitoring and medication
adjustments as needed. She was treated with sliding scale insulin while in the hospital and her home metformin was initially held. However she was ultimately restarted on her home dose of metformin 1000 mg daily after which she did not require
additional sliding scale insulin. Her hemoglobin A1c was 7.3% this admission. She will need close outpatient follow-up with her primary care physician for ongoing diabetic management. She should also be evaluated with neuropsychologic testing to
help establish the degree of her dementia. She is not able to take care of herself at this point and will require home health aides and family assistance. She can take low-dose Zyprexa at night and as needed for agitation in the setting of
dementia. She will be discharged home with a prescription for antibiotics (cefdinir) to be completed as instructed. At time of hospital discharge she was medically stable.
Gen-awake and alert, NAD
HEENT-NC, AT, anicteric, clear oral mm
Neck-supple
CV-reg, no M, +S1/S2
Lungs-clear B/L
Abd-soft, NT, ND
Musculoskeletal-no edema, no deformity
Skin-warm and dry
Neuro-grossly non-focal
Psych-confused, cooperative
Discharge Plan
-
Patient Disposition: Home with Home Care
Discharge Diagnosis/Procedures: Sepsis secondary to UTI
Diet: As tolerated
Activity: With assistance and As tolerated
Other Services: VN
Activity Restrictions/Additional Instructions:
Ms. Cruz is an 78-year-old female with a medical history of hypertension, mwu-ayitidx-hlgdlwbcz diabetes mellitus type 2, and dementia who presented with rigors, nausea vomiting, and fever of 102 �F. She was found to have a UTI, started on
appropriate antibiotics and admitted for treatment of sepsis secondary to UTI. Her urine cultures were growing pansensitive E. coli. Her clinical status significantly improved with antibiotic treatment and IV fluids. She was started on low-dose
Zyprexa for agitation in the setting of dementia and probable superimposed hospital induced delirium. One of her home blood pressure medications (hydrochlorothiazide) was held during this admission. She was normotensive on her home dose of
candesartan 8 mg daily, which was later reduced to 4 mg daily due to borderline hypotension. She should continue on candesartan 4 mg daily and follow-up with her primary care physician for ongoing blood pressure monitoring and medication
adjustments as needed. She was treated with sliding scale insulin while in the hospital and her home metformin was initially held. However she was ultimately restarted on her home dose of metformin 1000 mg daily after which she did not require
additional sliding scale insulin. Her hemoglobin A1c was 7.3% this admission. She will need close outpatient follow-up with her primary care physician for ongoing diabetic management. She should also be evaluated with neuropsychologic testing to
help establish the degree of her dementia. She is not able to take care of herself at this point and will require home health aides and family assistance. She can take low-dose Zyprexa at night and as needed for agitation in the setting of
dementia. She will be discharged home with a prescription for antibiotics (cefdinir) to be completed as instructed. At time of hospital discharge she was medically stable.
Referrals:
PRIVATE,PHYSICIAN [Family Provider] -
Prescriptions:
New
cefdinir 300 mg capsule
300 mg PO BID Qty: 14 0RF
olanzapine 2.5 mg Tablet
2.5 mg PO HS 30 Days Qty: 30 0RF
Continued
atorvastatin 40 mg Tablet
40 mg PO DAILY
ascorbic acid (vitamin C) [Vitamin C] 1,000 mg Tablet
1 g PO DAILY
cyanocobalamin (vitamin B-12) 1,000 mcg Tablet
1,000 mcg PO DAILY
glucosamine sulfate [Glucosamine] 500 mg Tablet
500 mg PO DAILY
citalopram 20 mg Tablet
20 mg PO DAILY
levothyroxine 50 mcg Tablet
50 mcg PO MOTUWETHFRSA
levothyroxine 50 mcg Tablet
100 mcg PO ROMAN
metformin 1,000 mg Tablet
1,000 mg PO DAILY
omeprazole 20 mg Capsule,Delayed Release(Dr/Ec)
20 mg PO DAILY
aspirin 81 mg Tablet,Chewable
81 mg PO DAILY
metoprolol succinate 25 mg Tablet Extended Release 24 Hr
25 mg PO DAILY
ezetimibe 10 mg Tablet
10 mg PO DAILY
memantine 10 mg Tablet
10 mg PO DAILY
cholecalciferol (vitamin D3) [Vitamin D3] 25 mcg (1,000 unit) Tablet
25 mcg PO DAILY
Changed
candesartan 8 mg Tablet
4 mg PO DAILY Qty: 0 0RF
Discontinued
hydrochlorothiazide 12.5 mg Tablet
12.5 mg PO DAILY
No Action
potassium 99 mg Tablet
99 mg PO DAILY
magnesium oxide 400 mg magnesium Tablet
400 mg PO DAILY
Discharge Orders:
Discharge Patient (As Directed); Ordered 05/31/24
Ordered By: Casper Ramírez
Discharge Date and Time
Print Language: MALTESE
[2024-05-31 11:29] LABS: Glucose - Point of Care 114 mg/dl (70-99)
[2024-05-31 12:05] VITALS: BP 149/65
== END 2024-05-31 12:19 | disposition home health service (06) | DRG 872 ==
LOC: 4 WEST ACU 02:55
PROVIDERS: Internal Medicine; Physician Assistant; ADMITTING PHYSICIAN Hospitalist; ATTENDING PHYSICIAN Internal Medicine; EMERGENCY PHYSICIAN Emergency Medicine
DX: A41.9 Sepsis, unspecified organism (principal); N39.0 Urinary tract infection, site not specified; F05 Delirium due to known physiological condition; B96.20 Unspecified Escherichia coli [E. coli] as the cause of diseases classified elsewhere; I10 Essential (primary) hypertension; E11.9 Type 2 diabetes mellitus without complications; F03.90 Unspecified dementia, unspecified severity, without behavioral disturbance, psychotic disturbance, mood disturbance, and anxiety; E03.9 Hypothyroidism, unspecified; Z79.84 Long term (current) use of oral hypoglycemic drugs; Z87.891 Personal history of nicotine dependence
CPT/HCPCS: 70450; 71046; 76770; 80048; 80053; 81003; 81015; 82947; 82962; 83036; 84443; 85025; 85027; 87040; 87077; 87086; 87186; 87502; 87811; 93005; 96361; 96374; 96375; 97162; 97166; 97530; 99285; J2358

== ENCOUNTER 2024-10-11 19:42 | Emergency (ER) | payer OTHER, SELFPAY ==
[2024-10-11 19:49] VITALS: BP 160/86
[2024-10-11 22:32] VITALS: BMI 21.5
--- NOTE | 2024-10-11 23:36 | ED.SKININJ ---
HPI-Injury
General
Chief Complaint: Skin Problem
Source: patient and family
Exam Limitations: none
Time Seen by Provider: 10/11/24 23:15
Nursing documentation reviewed up to this point in time: agreed with
History of Present Illness-Injury
Initial Injury comments:
Note:
CHIEF COMPLAINT(S)
red spot on the neck and left anterior forearm near the elbow.
HISTORY OF PRESENT ILLNESS
The patient is an 78-year-old female who presented with ared spot on her neck, which she noticed yesterday. She describes the rash as a little red spot on the skin surface without pain or itching, possibly two bug bites possibly from one insect.
The patient noted the rash appeared in a line and has occurred only on her neck. There is no presence of fever and no other red spots elsewhere on her body. She reports using citronella in her home to repel bugs.
PHYSICAL EXAM
General: Alert, no acute distress.
Skin: Small erythematous spots on the neck, consistent with possible insect bites. The skin is elevated but non-tender.
Neck: Supple, trachea midline, with small red spots possibly consistent with insect bites.
Other systems were examined and found to be normal as per the baseline exam provided.
PLAN
The patient will be provided with topical triple antibiotic ointment to alleviate any potential itching or discomfort. Careful observation of the rash for any changes is advised. No antibiotic treatment is initiated at this time as the rash is not
indicative of infection.
DIFFERENTIAL DIAGNOSIS
The Differential Diagnosis includes, in no particular order and is not limited to:
1. Insect bites
2. Contact dermatitis
3. Allergic reaction
4. Heat rash
5. Urticaria
6. Folliculitis
7. Poison amber exposure
8. Dermatitis herpetiformis
9. Pityriasis rosea
10. Atopic dermatitis
Disposition:
SUMMARY OF ENCOUNTER
The patient is an 78-year-old female who presented with two red spots, one on her left neck and the other on her left anterior forearm near the elbow. Upon examination in the emergency department, both spots appeared consistent with insect bites.
The patient reported noticing these spots the previous day. There were no signs of cellulitis, nor were the spots pruritic or painful. The patient denies any fever, chills, cognitive changes, or spread of the rash. The spot on the neck had a slight
linear quality, which was considered remotely possible for linear dermatitis, although insect bites were deemed more likely.
DISPOSITION
Discharge
ASSESSMENT
The clinical presentation and examination findings suggest that the red spots on the neck and forearm are likely due to insect bites.
PLAN
The plan includes monitoring the rash for any changes or signs of infection. No antibiotic treatment is advised as the rash does not indicate an infection.
PATIENT EDUCATION AND COUNSELING
The patient was advised to keep an eye on the rash for any changes in appearance, increase in size, or development of symptoms such as pain, itching, or systemic symptoms like fever. She was informed that if such changes occur, further medical
evaluation may be necessary.
FOLLOW-UP INSTRUCTIONS
The patient should follow up with her primary care provider if the rash changes or if she develops any systemic symptoms such as fever.
MEDICATION RECONCILIATION
As part of the management plan, there was no medication prescribed for this encounter due to the absence of infection or significant symptoms.
MEDICAL DECISION MAKING
- Number and Complexity of Problems Addressed: Chronic conditions affecting care are not specified. Differential diagnosis includes: Insect bites, contact dermatitis, allergic reaction, heat rash, urticaria, folliculitis, poison amber exposure,
dermatitis herpetiformis, pityriasis rosea, atopic dermatitis.
-Data:
Category 1: Tests and documents: None
-Risk: Consideration of Admission/Observation: Escalation of care including admission/observation was considered given the complexity and risk of the patients presenting complaint and examination findings. However, ultimately, I feel the patient is
safe for outpatient management with close follow-up. Reasoning: Work-up reassuring, does not reveal any acute life/organ-threatening processes, patients symptoms well controlled upon reevaluation, reexamination is reassuring, vitals are stable,
patient agreeable with discharge, reliable for follow-up.
DIAGNOSIS
W57.XXXA - Insect bite (nonvenomous), initial encounter
Past History
Past History
ED Past Medical History: HTN
Social History
Tobacco: Non-smoker
Personal:
Review of Systems
Review of Systems
Allergies reviewed?: Yes
All Other Systems: ROS reviewed and negative except as documented in HPI and ROS
Skin: Reports other (Bug bite); Denies itching or rash
Psychiatric: Reports anxiety
Phy Exam
Physical Exam
Physical Exam:
.
Course
Vital Signs
Initial and Last Documented VS:
Initial Vital Signs
Temp Pulse Resp BP Pulse Ox
98.0 F 75 18 160/86 97
10/11/24 19:49 10/11/24 19:49 10/11/24 19:49 10/11/24 19:49 10/11/24 19:49
Last Documented Vital Signs
Temp Pulse Resp BP Pulse Ox
98.0 F 75 18 160/86 97
10/11/24 19:49 10/11/24 19:49 10/11/24 19:49 10/11/24 19:49 10/11/24 19:49
*Pulse Oximetry
SaO2: 97
Oxygen Mode of Delivery: Room air
Patient hypoxic: no
*Critical Care Note
Total Time (30-74mins, 75-104mins- exclusive of procedures): Not Applicable
ED Attending Note
-
Portions of this chart may have been created with voice recognition software.� Occasional wrong word or��sound alike� substitutions may have occurred due to the inherent limitations of voice recognition software.
Discharge Plan
Departure
Patient Disposition: Home (Routine Discharge)
Date of Disposition: 10/11/24
Time of Disposition: 23:38
Patient with high blood pressure during this ER visit?: Yes
Condition: Good
Discharge Problem:
Insect bite
Instructions: Insect bites and stings - ED discharge instructions, BLOOD PRESSURE
Prescriptions:
No Action
atorvastatin 40 mg Tablet
40 mg PO DAILY
ascorbic acid (vitamin C) [Vitamin C] 1,000 mg Tablet
1 g PO DAILY
cyanocobalamin (vitamin B-12) 1,000 mcg Tablet
1,000 mcg PO DAILY
glucosamine sulfate [Glucosamine] 500 mg Tablet
500 mg PO DAILY
potassium 99 mg Tablet
99 mg PO DAILY
citalopram 20 mg Tablet
20 mg PO DAILY
levothyroxine 50 mcg Tablet
50 mcg PO MOTUWETHFRSA
levothyroxine 50 mcg Tablet
100 mcg PO ROMAN
metformin 1,000 mg Tablet
1,000 mg PO DAILY
omeprazole 20 mg Capsule,Delayed Release(Dr/Ec)
20 mg PO DAILY
aspirin 81 mg Tablet,Chewable
81 mg PO DAILY
metoprolol succinate 25 mg Tablet Extended Release 24 Hr
25 mg PO DAILY
ezetimibe 10 mg Tablet
10 mg PO DAILY
memantine 10 mg Tablet
10 mg PO DAILY
cholecalciferol (vitamin D3) [Vitamin D3] 25 mcg (1,000 unit) Tablet
25 mcg PO DAILY
magnesium oxide 400 mg magnesium Tablet
400 mg PO DAILY
cefdinir 300 mg capsule
300 mg PO BID Qty: 14 0RF
olanzapine 2.5 mg Tablet
2.5 mg PO HS 30 Days Qty: 30 0RF
candesartan 8 mg Tablet
4 mg PO DAILY Qty: 0 0RF
Referrals:
Nanda Alcantar CRNP [Family Provider, Family Practice]
Activity Restrictions/Additional Instructions:
Thank You for choosing [facility].
It was a pleasure meeting you and taking part in your care. We hope for your continued healing and wellness.
Please read discharge instructions in their entirety. However, they are for general education and may not describe your exact diagnosis at discharge. Information on your ER visit and medical conditions were discussed with you along with appropriate
follow up information...
If indicated, please take your medications as instructed and indicated on discharge paperwork.
Please schedule a follow up appointment as directed. Call to schedule an appointment
Please return to the emergency department with ANY change in, persisting, or worsening of symptoms. If any of your symptoms do not improve, or persist, or become more severe within 6-12 hours, please return to the emergency department for further
care.
Please return to the emergency department if you develop a headache, neck pain/stiffness, fever greater than 100.4F, chest pain, shortness of breath, persistent nausea, vomiting, slurred speech, difficulty walking, numbness/tingling, weakness, signs
of infection or any other symptoms that are worrisome to you.
If you have any questions or concerns please do not hesitate to call the Hospital at or E-mail me directly at [email or web address]
Interventions
Interventions:
*Risk Screen - Suicide Last Done: 10/11/24 19:49
*Neglect/Abuse Screening Last Done: 10/11/24 19:49
ED-Skin Assessment Last Done: 10/11/24 22:29
Discharge Date and Time
Print Language: CITIZ[place]
== END 2024-10-11 23:55 | disposition home or self-care (01) ==
LOC: EMR 19:42
PROVIDERS: EMERGENCY PHYSICIAN Student in an Organized Health Care Education/Training Program; FAMILY PHYSICIAN Nurse Practitioner Adult Health
DX: S10.96XA Insect bite of unspecified part of neck, initial encounter (principal); S50.862A Insect bite (nonvenomous) of left forearm, initial encounter; W57.XXXA Bitten or stung by nonvenomous insect and other nonvenomous arthropods, initial encounter; I10 Essential (primary) hypertension
CPT/HCPCS: 99282